=== PATIENT | male | born 1945 | race Caucasian/White ===

== ENCOUNTER 2016-10-29 11:01 | Outpatient (CLI) | payer MEDICARE ==
--- NOTE | 2016-10-29 12:17 | Ultrasound Report ---
SCROTAL DUPLEX: 10/29/2016 CLINICAL INDICATION: Palpable abnormality right side. TECHNIQUE: Real-time sonographic vascular imaging was performed by the assistant professor of religion through the testi cles utilizing both color-flow and Doppler spectral analysis. Multiple medical customer service representative static images were saved for review. FINDINGS: The right testicle measures 5.3 x 3.1 x 2.6 cm, and the left testicle measures 4.3 x 3.2 x 2.0 cm. Both testicles demonstrate normal flow and echotexture. An 8-mm right epididymal head cyst is seen. The left epididymis is unremarkable. There is a large right hydrocele present, and a smal l left hydrocele. No hernia or varicocele is identified. IMPRESSION: LARGE RIGHT AND SMALL LEFT HYDROCELES. NO EVIDENCE OF AN INTRATESTICULAR MASS. JOB #: [id number] EXT JOB #:[id number]
== END 2016-10-29 11:02 | disposition home or self-care (01) ==
LOC: DI 11:01
PROVIDERS: ATTEND Internal Medicine
DX: N43.3 Hydrocele, unspecified (principal)
CPT/HCPCS: 76870

== ENCOUNTER 2018-12-25 14:21 | Emergency (ER) | payer MEDICARE ==
[2018-12-25] MEDS ORDERED: ceFAZolin 2 GM in SODIUM CHLORIDE 0.9% 100ML 100 ML IV STA (14:52)
[2018-12-25] MEDS ORDERED: MORPHINE 2 MG/ML CARPUJECT IVP STA (14:53)
[2018-12-25] MEDS ORDERED: SODIUM CHLORIDE 0.9% 1,000 ML IV ONE (14:53)
--- NOTE | 2018-12-25 15:02 | ED Physician Documentation ---
PD HPI UPPER EXT INJURY - Stated complaint Stated Complaint: CUT OFF FINGER LT HAND - Chief complaint Chief Complaint: Laceration - History obtained from History obtained from: Patient, Family - History of Present Illness Location: Left, Finger (Index) Type of injury: Other (Finger amputation from a miter saw) Where injury occurred: Home Timing - onset: How many hours ago (1) Timing - duration: Hours (1) Timing - details: Abrupt onset Pain level max: 3 Pain level now: 2 Improved by: Rest Worsened by: Moving, Palpating Associated symptoms: No: Weakness, Numbness, Tingling, Swelling Contributing factors: No: Anticoagulated Recently seen: Not recently seen - Additonal information Additional information: Patient is right-handed Review of Systems Constitutional: denies: Fever Respiratory: denies: Cough GI: denies: Nausea, Vomiting Musculoskeletal: denies: Neck pain, Back pain Neurologic: denies: Headache PD PAST MEDICAL HISTORY - Past Medical History Cardiovascular: Hypertension Endocrine/Autoimmune: Type 2 diabetes - Past Surgical History HEENT: Tonsil/Adenoidectomy - Present Medications Home Medications: Ambulatory Orders Medication Instructions Recorded Confirmed Aspirin 12/25/18 Cephalexin [Keflex] 500 mg PO Q6H #28 capsule 12/25/18 Furosemide 12/25/18 Glipizide [Glipizide Xl] 12/25/18 Hydrocodone/Acetaminophen 1 - 2 each PO Q6H PRN #14 tablet 12/25/18 [Hydrocodon-Acetaminophen 5-325] metFORMIN [Glucophage] 12/25/18 - Allergies Allergies/Adverse Reactions: Allergies Allergy/AdvReac Type Severity Reaction Status Date / Time No Known Drug Allergies Allergy Verified 12/25/18 14:27 - Social History Does the pt smoke?: No Smoking Status: Never smoker Does the pt drink ETOH?: Yes Does the pt have substance abuse?: No - Immunizations Immunizations are current?: Yes PD ED PE NORMAL - Vitals Vital signs reviewed: Yes - General General: Alert and oriented X 3, No acute distress - Neck Neck: Supple, no meningeal sign - Derm Derm: Warm and dry - Extremities Extremities: Other (L index finger complete amputation of the finger just proximal to the DIP joint. NVI. ) - Neuro Neuro: Alert and oriented X 3 - Psych Psych: Normal mood, Normal affect Results - Vitals Vitals: Vital Signs - 24 hr 12/25/18 12/25/18 14:27 14:47 Temperature 36.6 C Heart Rate 95 91 Respiratory 18 18 Rate Blood Pressure 155/96 H 146/117 H O2 Saturation 96 97 Oxygen O2 Source Room air - Rads (name of study) L finger xray Radiology: Prelim report reviewed, EMP read contemporaneously, See rad report (Partial amputation of the second finger. No subcutaneous radiopaque foreign bodies identified. ) PD MEDICAL DECISION MAKING - ED course Complexity details: reviewed results, re-evaluated patient, considered differential, d/w patient, d/w family, d/w wireless sales consultant ED course: 73-year-old male with a left index finger amputation. Dr. Ortiz, orthopedics was consulted and rondure the bone back so tissue was overlying the area. Pressure dressing was applied. Patient was bleeding through the pressure dressing, Dr. Ortiz was recontacted and silver nitrate, TXA were attempted. Continued to have a small arterial bleed. Therefore it was elected to sew over the flap. This was done loosely with 2 stitches. No further bleeding. Tube gauze was placed over the area. Xeroform placed under the tube gauze. Patient was given Ancef here. Will place on Keflex and Vicodin for home. Pt will follow-up with orthopedics next week. Patient counseled regarding signs and symptoms for which I believe and urgent re-evaluation would be necessary. Patient with good understanding of and agreement to plan and is comfortable going home at this time This document was made in part using voice recognition software. While efforts are made to proofread this document, sound alike and grammatical errors may occur.. Warnings of infection and instructions on wound care given at bedside. Also counseled on how to minimize scarring. Departure - Departure Disposition: 01 Home, Self Care Clinical Impression: Fingertip amputation Qualifiers: Encounter type: initial encounter Qualified Code(s): S68.119A - Complete traumatic metacarpophalangeal amputation of unspecified finger, initial encounter Condition: Good Instructions: ED Laceration Amputation Finger Tip Open Tx Follow-Up: [facility] [Provider Group] Charles Ortiz MD [Provider Admit Priv/Credential] - 12/28/18 Prescriptions: Cephalexin [Keflex] 500 mg PO Q6H #28 capsule Hydrocodone/Acetaminophen [Hydrocodon-Acetaminophen 5-325] 1 - 2 each PO Q6H PRN #14 tablet PRN Reason: pain Comments: Follow-up with orthopedics on Friday for repeat evaluation. Return if you worsen. Keep the wound clean and dry. Return if you notice redness, swelling or drainage from the wound. Return especially for increasing pain as well. Do not drink alcohol or drive while on narcotic pain medicine. Note that many narcotic pain relievers also contain tylenol/acetaminophen. Please ensure that your total dose of acetaminophen from all sources does not ex ceed 3 grams (3000mg) per day. You may constipated on this medication, take a stool softener such as "Colace" twice a day while you are on it. Also recommend a eylb-gft-cogscvk laxative such as senna or MiraLAX any day that you do not have a bowel movement. If you received narcotic pain medication in the emergency department, do not drive or operate machinery for the next 24 hours.
--- NOTE | 2018-12-25 15:24 | XRAY Report ---
Reason: L index finger amputation Procedure Date: 12/25/2018 Accession Number: [id number] / [id number] Procedure: XR - Finger(s) LT CPT Code: FULL RESULT: EXAM: LEFT SECOND DIGIT RADIOGRAPHY EXAM DATE: 12/25/2018 03:14 PM. CLINICAL HISTORY: Left index finger amputation. COMPARISON: None. TECHNIQUE: 3 views. FINDINGS: Bones: The second finger has been amputated distal to the distal diaphysis of the second middle phalanx. Joints: . No subluxations. Soft Tissues: Irregular soft tissue at the distal aspect of the remnant finger. No subcutaneous radiopaque foreign bodies. IMPRESSION: Partial amputation of the second finger. No subcutaneous radiopaque foreign bodies identified. RADIA
[2018-12-25] MEDS ORDERED: BUPIVACAINE 0.5% PF 10 ML VIAL SUBQ STA (15:38)
[2018-12-25] MEDS ORDERED: TRANEXAMIC ACID 1,000 MG/10 ML VIAL NAS STA (17:37)
[2018-12-25 18:44] VITALS: BP 180/99
--- NOTE | 2018-12-25 20:30 | CONSULTATION NOTE ---
DATE OF SERVICE: 12/25/2018 Physician: Charles Ortiz MD EMERGENCY ROOM CONSULTATION REFERRING PHYSICIAN: Dr. Mehran Byrd of the ED. CHIEF COMPLAINT: "I cut off the tip of my left index finger with a miter saw." HISTORY OF PRESENT ILLNESS: The patient is a 73-year-old male, left-hand dominant, who was apparently cutting some lumber to do repairs on his deck at home when he sustained a traumatic amput ation of the tip of his left dominant index finger. Did not retrieve the tip of his finger. Had no prior injuries to his finger. Has noted some persistent bleeding at his wound site. PHYSICAL EXAMINATION: Shows an oblique transection of the tip of his left index finger. There is ex posed distal phalanx visible in his wound. A small arterial bleeder was noted in the palmar flap as well. X-RAYS: Shows x-ray signs consistent with a traumatic amputation through the distal tip of his dista l phalanx of his index finger. ASSESSMENT: Traumatic amputation of the tip of his left dominant index finger. PLAN: After a digital block using 2.5 mL of 0.5% Marcaine without epinephrine, we obtained a digital block of his finger. We then proceeded to use a rongeur to rongeur off the distal end of the distal phalanx until we were able to obtain soft tissue coverage of his fingertip wound. With pressure ruddy ssing, apparently, the arterial bleeder persisted. Attempt to chemically cauterize the bleeder was u nsuccessful as well. We proceeded to place 2 stitches to close the flap to get better coverage of th e distal phalanx, as well as to diminish the bleeding. Once stable, we then dressed the finger with a nonstick dressing, as well as finger splint to protect the tip of his finger. We will have him cov ered with analgesics and on a 5-7 day course of oral antibiotics. Will follow up [facility] in about a week's time for a wound check. TD: 12/25/2018 18:24
== END 2018-12-25 18:44 | disposition home or self-care (01) ==
LOC: ED 14:21
DX: S68.621A Partial traumatic transphalangeal amputation of left index finger, initial encounter (principal); W31.2XXA Contact with powered woodworking and forming machines, initial encounter; Y93.H3 Activity, building and construction; Y92.009 Unspecified place in unspecified non-institutional (private) residence as the place of occurrence of the external cause; I10 Essential (primary) hypertension; E11.9 Type 2 diabetes mellitus without complications; Z79.84 Long term (current) use of oral hypoglycemic drugs; Z79.82 Long term (current) use of aspirin
CPT/HCPCS: 26951; 73140; 96374; 99284

== ENCOUNTER 2019-01-12 09:27 | Outpatient (CLI) | payer MEDICARE | END 2019-01-12 09:28 | disposition home or self-care (01) | LOC: LAB.S 09:27 | PROVIDERS: ATTEND Internal Medicine | DX: I10 Essential (primary) hypertension (principal) | CPT/HCPCS: 36415; 81599; 82088; 83835; 84244 ==

== ENCOUNTER 2019-01-16 08:00 | Outpatient (CLI) | payer MEDICARE ==
--- NOTE | 2019-01-18 11:51 | Ultrasound Report ---
Reason: MALIGNANT HYPERTENSION Procedure Date: 01/16/2019 Accession Number: [id number] / [id number] Procedure: US - Arterial Visceral Complete CPT Code: FULL RESULT: EXAM: RENAL ARTERY DOPPLER ULTRASOUND EXAM DATE: 01/16/2019 09:20 AM. CLINICAL HISTORY: Malignant hypertension. COMPARISON: None. TECHNIQUE: Real-time sonographic vascular imaging was performed by the bank courier through the renal arterial system with a linear transducer utilizing color-flow, Doppler flow, and spectral analysis. Multiple communications representative static images were saved for review. FINDINGS: Technically challenging examination because of body habitus and overlying bowel gas. The right renal arterial system cannot be evaluated. Right Kidney: 12.6 x 5.8 x 5.8 cm. Echotexture: Within normal limits. Right Segmental Artery: Upper pole: PSV 32.6 cm/sec, RI 0.7. Mid pole: PSV 36.0 cm/sec, RI 0.7. Lower pole: PSV 23.0 cm/sec, RI 0.7. Right Renal Artery: Origin: Not visualized Proximal: Not visualized Mid: Not visualized Distal: PSV 67.9 cm/sec, RA/AO 1.5. Aorta PSV: 45.3 cm/sec. Left Kidney: 13.1 x 7.0 x 6.3 cm. Echotexture: Within normal limits. Left Segmental Artery: Upper pole: PSV 30.1 cm/sec, RI 0.7. Mid pole: PSV 41.6 cm/sec, RI 0.7. Lower pole: PSV 30.3 cm/sec, RI 0.7. Left Renal Artery: Origin: PSV 137.3 cm/sec, RA/AO 3.0. Proximal: PSV 84.6 cm/sec, RA/AO 1.9. Mid: PSV 76.6 cm/sec, RA/AO 1.7. Distal: PSV 62.2 cm/sec, RA/AO 1.4. IMPRESSION: Nondiagnostic examination secondary limitations noted above. Because of clinical history, consider MR angiography or CT angiography, renal function permitting. CRITERIA FOR CLASSIFICATION OF RENAL ARTERY (RA) DISEASE BY DUPLEX SCANNING: RA Diameter Reduction/ RA PSV/ RAR: Normal, < 180 cm/sec, < 3.5 < 60%, >= 180 cm/sec, < 3.5 >= 60%, >= 180 cm/sec, >= 3.5 Total Occlusion: Undetectable; Not applicable RADIA
== END 2019-01-16 08:01 | disposition home or self-care (01) ==
LOC: DI 08:00
PROVIDERS: ATTEND Internal Medicine
DX: I10 Essential (primary) hypertension (principal)
CPT/HCPCS: 93975

== ENCOUNTER 2019-03-23 13:34 | Outpatient (CLI) | payer MEDICARE ==
--- NOTE | 2019-03-23 14:18 | SLEEP CARE CONSULTATION ---
Information from patient questionnaire entered by Nishi Whelan. I have reviewed and concur with the information entered by Nishi Whelan. This document represents the service I personally performed and the decisions made by me, Sylvia Mayer MD, [facility]. History of Present Illness Reason for Visit: New patient Chief Complaint: reports: Excessive daytime sleepiness, Other (hypertension) Duration of Symptoms: months Usual bedtime: [id number] Time it takes to fall asleep: 10-15 minutes Snores at night: Yes Observed to quit breathing while asleep: No Sleeps alone due to snoring: Yes Number of times waking at night: 1-2 Reasons for waking at night: reports: Pain, Bathroom Toss, Turn, or Twitch while sleeping: Yes (sometimes) Recalls having dreams: Yes Usually gets out of bed at: 0600-080 Feels refreshed in the morning: No Morning headache: No Sleepy or fatigued during the day: Yes Ever fallen asleep while driving: Yes Takes day naps: Yes Dreams during day naps: No Prior sleep studies: No Additional HPI information: I had the pleasure of seeing Mr. Grace today regarding the possibility of him having a sleep disorder. As you know, he is a 73 year old gentleman who complains of loud snore and history of hypertension that is difficult to control. The patient tells me that he normally goes to bed around 1:30 2 am, and it takes him approximately 10 - 15 minutes to fall asleep. He has been told that he snores loudly and irregularly at night. He has never been observed to stop breathing in his sleep. However, his has to sleep in a separate room. He can recall waking up on the average of 1 - 2 times during the night. Most of the time he wakes up because of pain. He has never awakened occasionally because of his own snoring, choking, or having to gasp for air. However, he does not sleep on his back. There is not a lot of tossing and turning in his sleep. No somniloquy (sleep talking) or somnambulism (sleep walking). Generally he can recall having dreams. In the morning he usually gets up out of the bed around 6 - 8 a.m. not feeling refreshed nor rested. He usually does not have a morning headache. During the day he complains of feeling sleepy and fatigued. His score on [place] Sleepiness Scale is 13 out of 24. He has fallen asleep while driving and has gone out of the benjamin. He usually takes naps during the day. Upon falling asleep during the day he denies having vivid dreams. He has never had sleep paralysis, experienced cataplexy or symptoms of restless leg syndrome. He reports having impaired concentration during the day. Subjective Initial [place] Sleepiness Scale score: 13 Past Medical History Past Medical History: reports: Hypertension, Diabetes (type 2), Arthritis, GERD, Other (edema,cholesteral) Social History The patient's occupation is retired. Patient is and lives in [place]. Have you smoked in the past 12 months: No Cigarettes per day (20/pack): 20 Years of smokin Quit date: 2008 Smoking Pack Years: 30.0 Alcohol use: Yes Alcohol amount and frequency: 1-2, 2 times/year Caffeine use: Yes Caffeine amount and frequency: 2 cups/morning Family History Family history of sleep disordered breathing: No Allergies and Home Medications Drug allergies reviewed: Yes Home medication list reviewed: Yes Allergy and home medication list: Meds: metformin, amlodipine, losartan, glipizide, furosemide, atorvastatin, vitamins Allergies: NKDA Review of Systems Weight loss over past 5 years: 30 Cardiovascular: reports: high blood pressure, leg or foot swelling Respiratory: denies: shortness of breath, wheeze, sputum production, chronic cough, other Gastrointestinal: reports: heartburn Urinary: reports: frequency, urgency Neurological: denies: headaches, seizure, head trauma, disorientation, speech dysfunction, gait or balance problems, fainting or unconsciousness, other Psychiatric: denies: Attention Deficit Hyperactivity, anxiety, depression, mood disorder, claustrophobia, other Ear/Nose/Throat: reports: dry mouth/throat, tonsillectomy, wisdom teeth removed Endocrine: reports: increased appetite Musculoskeletal: reports: joint pain, neck pain, back pain, joint swelling, muscle pain or cramping Immunologic: denies: sneezing, rash, itching, allergies to food or environment, other Physical Exam Vital signs obtained and entered by: Dr. Mayer Blood Pressure: 169/102 Cuff size: regular Heart Rate: 79 O2 Saturation: 96 Height: 6 ft Weight: 300 lb Body Mass Index: 40.6 BMI Classification: Obesity Class 3 Neck circumference: 18 Nasal exam: positive: erythema Mood/affect: normal HEENT: No craniofacial malformation Nostrils: patent to airflow Turbinates: normal Septum: deviated left Mouth and throat: narrow oropharynx Soft palate: long Hard palate: normal Uvula: normal Uvula visualization: 50% Mallampati Class II Tongue: normal in size Tonsils: absent bilaterally Chin and jaw: normal size and position Neck: normal w/o lymphadenopathy or thyromegaly Heart: regular rate and rhythm Lungs: clear bilaterally Abdomen: soft, non-tender Extremities: 1+ edema Neurologic: intact, no focal deficits Impression and Plan IMPRESSION: 1. Obstructive Sleep Apnea-Hypopnea Syndrome, as suggested by history of loud and irregular snoring, frequent awakenings during the night, unrefreshed sleep, cognitive impairment, and daytime hypersomnolence. Narrow oropharynx and obesity are common predisposing factors for obstructive sleep apnea-hypopnea syndrome. Untreated obstructive sleep apnea can also cause hypertension. Pathophysiology of sleep-disordered breathing was discussed. I recommend proceeding to polysomnography to confirm the diagnosis and to assess severity. If he has significant sleep disordered breathing, a manual CPAP titration study will also be performed to find the optimal treatment pressure. I informed the patient of what the sleep studies involve and after some discussion, he agreed to proceed. Plan: 1. Schedule polysomnography + manual CPAP titration study 2. Avoid long distance driving or when feeling sleepy. 3. Avoid alcohol, sedative and muscle relaxant around bedtime. 4. Attempt to lose weight. 5. Return in 1 to 2 weeks after the study to discuss results and initiate therapy. I spent 100% of this 20 minute visit face to face with the patient with greater than 50% of this was spent time counseling the patient and coordination of care.
[2019-03-23 14:19] VITALS: BP 169/102
== END 2019-03-23 13:35 | disposition home or self-care (01) ==
LOC: SC 13:34
PROVIDERS: ATTEND Internal Medicine Pulmonary Disease
DX: G47.10 Hypersomnia, unspecified (principal); R41.89 Other symptoms and signs involving cognitive functions and awareness; G47.8 Other sleep disorders; R06.83 Snoring; E66.9 Obesity, unspecified; Z68.41 Body mass index [BMI] 40.0-44.9, adult
CPT/HCPCS: 99203; G0463; 99212

== ENCOUNTER 2019-06-29 13:50 | Outpatient (CLI) | payer MEDICARE ==
--- NOTE | 2019-06-29 16:44 | SLEEP CARE CONSULTATION ---
Information from patient questionnaire entered by Hollie Garces. I have reviewed and concur with the information entered by Hollie Garces. This document represents the service I personally performed and the decisions made by me, Sylvia Mayer MD, [facility]. History of Present Illness Initial [place] Sleepiness Scale score: 13 Current [place] Sleepiness Scale score: 9 Additional HPI information: HPI: Mr. Belle returned for follow up of the sleep study he had on 06/17/2019. The polysomnography showed that the patient had reduced sleep efficiency due to two prolonged awakenings after the sleep onset. The sleep architecture was abnormal for sleep fragmentation and lack of REM sleep Respiratory monitoring showed moderate obstructive sleep apnea-hypopnea (AHI = 20.3) associated with frequent arousals, oxyhemoglobin desaturation and mild hypoxia (jose oxygen saturation of 82%). The respiratory events occurred mainly during supine sleep (supine AHI = 37.4; non-supine = 11.72). Snore was moderate to loud in intensity. There was severe periodic leg movement of sleep contributing to the sleep fragmentation. Cardiac rhythm was normal sinus rhythm without significant arrhythmia. No abnormal behavior (parasomnia) observed during the night. The patient was informed of these findings. I explained to him the pathophysiology behind obstructive sleep apnea. We then spent quite a bit of time discussing different treatment options. For mild obstructive sleep apnea, surgery and oral appliance are alternatives to nasal CPAP therapy but in moderate or severe cases, nasal CPAP is the most effective and reliable treatment. Weight loss in an obese individual is strongly recommended. After some discussion, he opted to go with the nasal CPAP therapy. I explained to him how CPAP machine works and what to expect when using the machine. He is encouraged to use CPAP every night especially in the first 2 to 3 nights in order to get used to it. He should call his CPAP supplier or me to discuss any mechanical problem that may occur. If he snores or feels like he is not getting enough air from the machine, he should notify me and I will increase the pressure. Allergies and Home Medications Drug allergies reviewed: Yes Home medication list reviewed: Yes Review of Systems Review of systems same as previous: Yes Physical Exam Height: 6 ft Weight: 300 lb Body Mass Index: 40.6 BMI Classification: Morbidly Obese Impression and Plan IMPRESSION: 1. Obstructive Sleep Apnea-Hypopnea Syndrome, moderate, associated with mild hypoxemia and sleep fragmentation. Most likely, this is the cause of the patients symptoms of unrefreshed sleep, and excessive daytime sleepiness. As mentioned above, the patient will be started on an autoCPAP set at 5 - 15 cmH2O. Depending on his response and compliance he may be brought back for an overnight CPAP titration study. PLAN: 1. Prescription made for an autoCPAP, heated humidifier, and related supplies. 2. Attempt to lose weight and avoid alcohol consumption near bedtime. 3. The patient is again cautioned about driving until his sleepiness completely resolves on the CPAP therapy. I spent 100% of this visit face to face with the patient with greater than 50% of this was spent time counseling the patient and coordination of care.
== END 2019-06-29 13:51 | disposition home or self-care (01) ==
LOC: SC 13:50
PROVIDERS: ATTEND Internal Medicine Pulmonary Disease
DX: G47.33 Obstructive sleep apnea (adult) (pediatric) (principal); E66.01 Morbid (severe) obesity due to excess calories; Z68.41 Body mass index [BMI] 40.0-44.9, adult
CPT/HCPCS: 99212; 99213

== ENCOUNTER 2019-07-28 16:42 | Outpatient (CLI) | payer MEDICARE ==
--- NOTE | 2019-07-28 17:43 | SLEEP CARE CONSULTATION ---
Information from patient questionnaire entered by Nishi Whelan. I have reviewed and concur with the information entered by Nishi Whelan. This document represents the service I personally performed and the decisions made by me, Gwendolyn Beck, RN, MSN, MACHINE SKIVER. History of Present Illness Service Date and Time: 07/28/2019 1600 Previous diagnosis: Moderate, Obstructive Sleep Apnea-Hypopnea Syndrome AHI: 20.3 Reason for follow up: one month (very dry mouth with no help changing humidity) Equipment type: CPAP Equipment obtained from: [facility] [facility] Mask style: Full face Mask brand: Respironics ([employer]) Last cushion change: none since set up - only used for 12-13 days Prior sleep studies: Yes CPAP Compliance Data - Data Reviewed with Patient Average duration of nightly device use: 5h 7m Compliance rate %: 86 (14 day period) Current pressure setting (cmH2O): 5-15 Average residual AHI: 2.7 (mean pressure 8.6cm/ 95th pressure 12.1cmH20) Average large leak: 8.7 liters a minute / 95th is 37.1 liters a minute Subjective Patient concerns: reports: mask discomfort (slightly when he sleeps on his side), condensation in mask/hose (slight), dry mouth, nose, throat (dry mouth and throat). denies: aerophagia, air blowing in eyes, mask leak noise, nasal congestion, epistaxis, other Observed to snore while using device: No Current pressure setting perceived as: comfortable On therapy, patient: reports: sleeping better (a little better) Initial [place] Sleepiness Scale score: 13 Allergies and Home Medications Home medication list reviewed: No Physical Exam Height: 6 ft Impression and Plan 1. Obstructive Sleep Apnea-Hypopnea Syndrome, moderate, with good treatment compliance and good apnea control the first 13 days of use. On CPAP therapy, the patient has slightly better sleep quality. His main concern is his oral dryness despite maximum humidity setting of 8 and reduced heated hose temperature of 67%. The CPAP reservoir seems to be using most of the water. He also has some condensation in his hose from the reduced hose temperature so I advised increasing the hose temperature slightly. I explained that his mask leaks may be contributing to his oral dryness. The patient has checked his mask fit and it shows good. However, his compliance graph shows masks leaks most days with an average of 8.7 liters a minute and 95th range of 37.1 liters per minute. It appears he notes his mask leaks mostly when he sleeps on is side and adjusts his pillow and mask. I explained that a CPAP pillow with cut outs on the side can be bought on line to reduce mask leaks when he sleeps in the lateral recumbent position. I also discussed a mask refitting but he likes this mask. So I advised him to adjust the straps slightly tighter. If continued oral dryness, I may need to have the device checked for malfunction of humidity. In addition, I will have him complete a sleep diary to see why he is only sleeping about 5 hours that includes a nap per patient concern. The current pressure is comfortable and will not be changed at this time. * Continue CPAP pressure at 4-15 cmH2O * Adjust mask * Consider CPAP pillow * sleep diary - 2 weeks * Notify me if snoring with mask or feeling that the pressure is too much or too little * Call this office if any problems using CPAP * Return for follow up in 2-4 weeks , or sooner if concerns arise Visit Type: Telehealth Phone (to minimize cj risk of COVOD -19 exposure, the patient has agreed to a telehealth visit and to bill his insurance.) Patient agrees and consents to this telehealth visit type: Yes Time Spent with Patient (minutes): 12 Provider Statement: I spent 100% of the Telehealth Phone Call with the patient with greater than 50% spent counseling the patient and coordination of care.
== END 2019-07-28 16:43 | disposition home or self-care (01) ==
LOC: SC 16:42
PROVIDERS: ATTEND Nurse Practitioner Family
DX: G47.33 Obstructive sleep apnea (adult) (pediatric) (principal)

== ENCOUNTER 2019-08-18 14:42 | Outpatient (CLI) | payer MEDICARE ==
--- NOTE | 2019-08-18 09:31 | SLEEP CARE CONSULTATION ---
Information from patient questionnaire entered by Nishi Whelan. I have reviewed and concur with the information entered by Nishi Whelan. This document represents the service I personally performed and the decisions made by me, Gwendolyn Beck, RN, MSN, RN PAIN MANAGEMENT. History of Present Illness Service Date and Time: 08/18/2019 1442 Previous diagnosis: Moderate, Obstructive Sleep Apnea-Hypopnea Syndrome AHI: 20.3 Reason for follow up: first compliance Equipment type: CPAP Equipment obtained from: [employer] Mask style: Full face Backup mask available: No CPAP Compliance Data - Data Reviewed with Patient Average duration of nightly device use: 5h 15m Compliance rate %: 97 Current pressure setting (cmH2O): 5-15 Average residual AHI: 2.7 (med 8.5cmH20 / 95th% 12.2%) Average large leak: 4.7 liters per minute Subjective Patient concerns: reports: air blowing in eyes (rare), dry mouth, nose, throat (dry mouth - reduced the humidity to 6 and is better), other (tried the CPAP pillow to reduce mask leaks but did not seem better so stopped using / notes extra leak at connection of hose to mask at top of head- not vent). denies: aerophagia, mask discomfort, mask leak noise, condensation in mask/hose, nasal congestion, epistaxis Observed to snore while using device: No (single) Current pressure setting perceived as: comfortable On therapy, patient: reports: sleeping better, awakening more refreshed (slight increase in restfulness and sleep), being more awake and alert during the day, more rested overall, other. denies: drowsiness while driving Initial [place] Sleepiness Scale score: 13 Physical Exam Height: 6 ft Impression and Plan 1. Obstructive Sleep Apnea-Hypopnea Syndrome, moderate, with good treatment compliance and good apnea control. On CPAP therapy, the patient has slightly better sleep quality and is more rested overall. The patient continues to have oral dryness that could be related to his increased in mask leaks. He states his mask fit is good when tried. He also states that there is a leak at the connection of the hose to the to the mask at top of his head. It was not the vent. In addition, he has not received any mask cushions or filters. Thus he is advised to contact [employer] for more mask cushions to improve mask seal and to obtain more filers. In addition, he is to inform them of the extra leak noted at connection site of hose to mask to see if there is a malfunction and needs to be replaced or adjusted differently. Since his apnea is well controlled at medimum pressure of 8.5cmH20 and 95th percentile of 12.2cmH20 I will adjust his CPAP pressure to [id number]. He is to contact me if there is any discomfort with pressure change. There was not time to review his sleep diary to see why he only sleeps about 5-6 hours. I offered to review at next encounter available in a month but declined. Thus his sleep time will be reviewed at his 3 month CPAP check to see if further sleep diary information needed. Patient's apnea severity and rationale for treatment to reduce apnea, improve sleep quality and reduce cardiovascular and cerebrovascular events was reviewed. I also reviewed the benefit of consistent device use of CPAP for hypertension. * [employer] CPAP pressure to 8-12 cmH2O * Contact [facility] re hose leak, needed supplies * Notify me if snoring with mask or feeling that the pressure is too much or too little * Review sleep diary at follow up if still not sleeping longer hours. * Call this office if any problems using CPAP * Return for follow up in 3 months , or sooner if concerns arise Visit Type: Telehealth Phone Patient Location: Home Location of Provider: Office Patient agrees and consents to this telehealth visit type: Yes Time Spent with Patient (minutes): 10 Provider Statement: I spent 100% of the Telehealth Phone Call with the patient with greater than 50% spent counseling the patient and coordination of care.
== END 2019-08-18 14:43 | disposition home or self-care (01) ==
LOC: SC 14:42
PROVIDERS: ATTEND Nurse Practitioner Family
DX: G47.33 Obstructive sleep apnea (adult) (pediatric) (principal)

== ENCOUNTER 2022-12-12 17:40 | Outpatient (CLI) | payer MEDICARE ==
[2022-12-12 20:31] LABS: BILIRUBIN,URINE NEGATIVE (NEGATIVE); GLUCOSE, URINE (UA) NEGATIVE (NEGATIVE); KETONES,URINE (UA) NEGATIVE (NEGATIVE); LEUKOCYTE ESTERASE, URINE TRACE (NEGATIVE); NITRITE,URINE NEGATIVE (NEGATIVE); OCCULT BLOOD,URINE TRACE-INTA (NEGATIVE); PH,URINE 5.5 PH (5.0-7.5); PROTEIN,URINE 30 mg/dL (NEGATIVE); UROBILINOGEN,URINE 0.2 (NORMAL) E.U./dL (NORMAL)
[2022-12-12 20:32] LABS: CLARITY,URINE CLOUDY (CLEAR)
[2022-12-12 21:07] LABS: BACTERIA,URINE Many /HPF (None Seen); MUCUS,URINE Moderate Strands; RBC,URINE 0-5 /HPF (0-5); SQUAMOUS EPITHELIAL CELL,UR FEW Squamous (<= Few)
--- NOTE | 2022-12-13 13:53 | XRAY Report ---
PROCEDURE: Lumbar Spine 2 View INDICATIONS: LEFT FLANK PAIN TECHNIQUE: 2 views of the lumbar spine were acquired. COMPARISON: None. FINDINGS: Bones: 5 [id number] vertebrae are present. There is trace retrolisthesis of L1 and L2 Occult i njury, likely on L4 and L5 on S1. Multilevel moderate degenerative disc space narrowing is present. M ultilevel foraminal narrowing most severe at L3-4 and L5-S1. Anterior osteophytes are present.. No v ertebral body compression fractures. No suspicious bony lesions. Soft tissues: Overlying bowel gas pattern is normal. No suspicious soft tissue calcifications. IMPRESSION: Multilevel degenerative changes as above. Reviewed by: Serena De Los Santos MD on 12/13/2022 1:51 PM PDT Approved by: Serena De Los Santos MD on 12/13/2022 1:51 PM PDT Station ID: [id number]
--- NOTE | 2022-12-13 13:53 | XRAY Report ---
PROCEDURE: Hip w/Pelvis 2-3V LT INDICATIONS: LEFT HIP PAIN TECHNIQUE: AP pelvis with lateral view(s) of the left hip(s). COMPARISON: None. FINDINGS: Bones: No fractures or dislocations. No suspicious bony lesions. Mild to moderate bilateral degen erative joint space narrowing within the hips bilaterally. No erosions. Soft tissues: No suspicious soft tissue calcifications or masses. IMPRESSION: Bilateral hip arthritis Reviewed by: Serena De Los Santos MD on 12/13/2022 1:52 PM PDT Approved by: Serena De Los Santos MD on 12/13/2022 1:52 PM PDT Station ID: [id number]
== END 2022-12-12 23:59 | disposition home or self-care (01) ==
LOC: DI.S 17:40
PROVIDERS: ATTEND Emergency Medicine
DX: R10.9 Unspecified abdominal pain (principal); M16.0 Bilateral primary osteoarthritis of hip; M48.061 Spinal stenosis, lumbar region without neurogenic claudication; M48.07 Spinal stenosis, lumbosacral region; M51.36 Other intervertebral disc degeneration, lumbar region
CPT/HCPCS: 81001; 87077; 87086; 87181

== ENCOUNTER 2022-12-13 14:32 | Emergency (ER) | payer MEDICARE ==
[2022-12-13 15:21] LABS: BASOPHILS % (AUTO) 0.3 %; EOSINOPHILS % (AUTO) 0.3 %; HCT - HEMATOCRIT 36.8 % (42.0-52.0); HGB - HEMOGLOBIN 11.6 g/dL (14.0-18.0); LYMPHOCYTES # (AUTO) 1.9 10^3/uL (1.5-3.5); LYMPHOCYTES % (AUTO) 16.6 %; MEAN CORPUSCULAR HEMOGLOBIN 26.7 pg (27.0-31.0); MEAN CORPUSCULAR HGB CONC 31.5 g/dL (32.0-36.0); MEAN CORPUSCULAR VOLUME 84.8 fL (80.0-94.0); MEAN PLATELET VOLUME 8.7 fL (7.4-11.4); MONOCYTES # (AUTO) 0.8 10^3/uL (0.0-1.0); MONOCYTES % (AUTO) 7.3 %; NEUTROPHILS # (AUTO) 8.7 10^3/uL (1.5-6.6); PLT - PLATELET COUNT 298 10^3/uL (130-450); RED BLOOD COUNT 4.34 10^6/uL (4.70-6.10); RED CELL DISTRIBUTION WIDTH 14.6 % (12.0-15.0); WHITE BLOOD COUNT 11.6 x10^3/uL (4.8-10.8)
[2022-12-13 15:32] LABS: ALBUMIN 3.7 g/dL (3.2-5.5); BILIRUBIN,TOTAL 0.5 mg/dL (0.2-1.0); CALCIUM 9.3 mg/dL (8.5-10.3); CREATININE 1.1 mg/dL (0.6-1.3); POTASSIUM 3.7 mmol/L (3.5-4.5); TOTAL PROTEIN 7.3 g/dL (6.4-8.9)
--- NOTE | 2022-12-13 15:39 | ED Physician Documentation ---
History of Present Illness - Stated complaint Stated Complaint: GEN WEAKNESS - Chief complaint Chief Complaint: General - History obtained from History obtained from: Patient - Additonal information Additional information: 77-year-old gentleman presents with multiple complaints includin. 25 pound unintended weight loss over 6 weeks 2. 3 days of excessive tiredness and falling asleep in the middle of the day despite sleeping at night. 3. Feeling hot and cold and cannot control his temperature without measured fevers. 4. Improving left low back pain for which he had x-rays of the back and hips done at urgent care yesterday showing significant degenerative changes He has a history of type 2 diabetes and hypertension. Has never had a colonoscopy. He is not getting routine prostate cancer screenings. PD PAST MEDICAL HISTORY - Past Medical History Cardiovascular: Hypertension Endocrine/Autoimmune: Type 2 diabetes - Past Surgical History HEENT: Tonsil/Adenoidectomy - Present Medications Home Medications: Ambulatory Orders Medication Instructions Recorded Confirmed Aspirin 12/25/18 Furosemide 12/25/18 Glipizide [Glipizide Xl] 12/25/18 Hydrocodone/Acetaminophen 1 - 2 each PO Q6H PRN #14 tablet 12/25/18 [Hydrocodon-Acetaminophen 5-325] cephALEXin [Keflex] 500 mg PO Q6H #28 capsule 12/25/18 metFORMIN [Glucophage] 12/25/18 Ciprofloxacin HCl [Cipro] 500 mg PO BID #20 tablet 12/13/22 Cyclobenzaprine [Flexeril] 10 mg PO TID PRN #20 tablet 12/13/22 - Allergies Allergies/Adverse Reactions: Allergies Allergy/AdvReac Type Severity Reaction Status Date / Time No Known Drug Allergies Allergy Verified 12/25/18 14:27 - Social History Does the pt smoke?: No Smoking Status: Never smoker Does the pt drink ETOH?: Yes Does the pt have substance abuse?: No - Immunizations Immunizations are current?: Yes PD ED PE NORMAL - Vitals Vital signs reviewed: Yes - General General: Alert and oriented X 3, No acute distress - HEENT HEENT: PERRL, EOMI - Neck Neck: Supple, no meningeal sign, No bony TTP - Cardiac Cardiac: RRR, Other (3 out of 6 machinelike decrescendo holosystolic murmur heard best at the apex. He states his primary care physician knows about this. Has not had an echo.) - Respiratory Respiratory: No respiratory distress, Clear bilaterally - Abdomen Abdomen: Soft, Non tender - Back Back: No CVA TTP, No spinal TTP - Derm Derm: Normal color, Warm and dry - Extremities Extremities: No edema, No calf tenderness / cord - Neuro Neuro: Alert and oriented X 3, Normal speech Results - Vitals Vitals: Vital Signs - 24 hr 12/13/22 12/13/22 14:37 17:49 Temperature 36.8 C Heart Rate 90 91 Respiratory 20 16 Rate Blood Pressure 125/75 125/76 O2 Saturation 98 99 Oxygen O2 Source Room air - EKG (time done) 1450 EKG releavant findings:: EKG personally interpreted by author of this note. Relevant findings are: Rate: Rate (enter#) (85) Rhythm: NSR [place]: Normal Intervals: Prolonged HI, RBBB Ischemia: Normal ST segments Compare to prior EKG: Old EKG unavailable Computer interpretation: Agree with computer - Labs Labs: Laboratory Tests 12/13/22 12/13/22 12/13/22 15:07 15:07 15:07 WBC 11.6 H RBC 4.34 L Hgb 11.6 L Hct 36.8 L MCV 84.8 MCH 26.7 L MCHC 31.5 L RDW 14.6 Plt Count 298 MPV 8.7 Neut # (Auto) 8.7 H Lymph # (Auto) 1.9 Forest # (Auto) 0.8 Eos # (Auto) 0.0 Baso # (Auto) 0.0 Absolute Nucleated RBC 0.00 Nucleated RBC % 0.0 Sodium 134 L Potassium 3.7 Chloride 98 L Carbon Dioxide 30 Anion Gap 6.0 BUN 19 Creatinine 1.1 Estimated GFR (MDRD) 65 L Glucose 111 H Calcium 9.3 Total Bilirubin 0.5 AST 17 ALT 24 Alkaline Phosphatase 106 Total Protein 7.3 Albumin 3.7 Globulin 3.6 Albumin/Globulin Ratio 1.0 Lipase 18 TSH 1.58 Urine Color Urine Clarity Urine pH Ur Specific [place] Urine Protein Urine Glucose (UA) Urine Ketones Urine Occult Blood Urine Nitrite Urine Bilirubin Urine Urobilinogen Ur Leukocyte Esterase Urine RBC Urine WBC Urine WBC Clumps Ur Squamous Epith Cells Urine Bacteria Ur Microscopic Review Urine Culture Comments Nasal Adenovirus (PCR) Nasal B. parapertussis DNA (PCR) Nasal Coronavir 229E PCR Nasal Coronavir HKU1 PCR Nasal Coronavir NL63 PCR Nasal Coronavir OC43 PCR Nasal Enterovir/Rhinovir PCR Nasal Influenza B PCR Nasal Influenza A PCR Nasal Parainfluen 1 PCR Nasal Parainfluen 2 PCR Nasal Parainfluen 3 PCR Nasal Parainfluen 4 PCR Nasal RSV (PCR) Nasal B.pertussis DNA PCR Nasal C.pneumoniae (PCR) Al Human Metapneumo PCR Nasal M.pneumoniae (PCR) Nasal SARS-CoV-2 (PCR) 12/13/22 12/13/22 15:37 17:11 WBC RBC Hgb Hct MCV MCH MCHC RDW Plt Count MPV Neut # (Auto) Lymph # (Auto) [place] # (Auto) Eos # (Auto) Baso # (Auto) Absolute Nucleated RBC Nucleated RBC % Sodium Potassium Chloride Carbon Dioxide Anion Gap BUN Creatinine Estimated GFR (MDRD) Glucose Calcium Total Bilirubin AST ALT Alkaline Phosphatase Total Protein Albumin Globulin Albumin/Globulin Ratio Lipase TSH Urine Color YELLOW Urine Clarity HAZY Urine pH 5.5 Ur Specific [place] 1.015 Urine Protein 30 H Urine Glucose (UA) NEGATIVE Urine Ketones NEGATIVE Urine Occult Blood SMALL H Urine Nitrite NEGATIVE Urine Bilirubin NEGATIVE Urine Urobilinogen 0.2 (NORMAL) Ur Leukocyte Esterase TRACE H Urine RBC 6-10 H Urine WBC 11-25 H Urine WBC Clumps PRESENT Ur Squamous Epith Cells RARE Squamous Urine Bacteria Many H Ur Microscopic Review INDICATED Urine Culture Comments INDICATED Nasal Adenovirus (PCR) NOT DETECTED Nasal B. parapertussis DNA (PCR) NOT DETECTED Nasal Coronavir 229E PCR NOT DETECTED Nasal Coronavir HKU1 PCR NOT DETECTED Nasal Coronavir NL63 PCR NOT DETECTED Nasal Coronavir OC43 PCR NOT DETECTED Nasal Enterovir/Rhinovir PCR NOT DETECTED Nasal Influenza B PCR NOT DETECTED Nasal Influenza A PCR NOT DETECTED Nasal Parainfluen 1 PCR NOT DETECTED Nasal Parainfluen 2 PCR NOT DETECTED Nasal Parainfluen 3 PCR NOT DETECTED Nasal Parainfluen 4 PCR NOT DETECTED Nasal RSV (PCR) NOT DETECTED Nasal B.pertussis DNA PCR NOT DETECTED Nasal C.pneumoniae (PCR) NOT DETECTED Al Human Metapneumo PCR NOT DETECTED Nasal M.pneumoniae (PCR) NOT DETECTED Nasal SARS-CoV-2 (PCR) NOT DETECTED - Rads (name of study) CT chest showing small hiatal hernia and patulous esophagus Relevant Findings:: Final report received, EMP independent interpretation of test CT A/P- R renal mass, 2.4 cm poss RCC. Relevant Findings:: Final report received, EMP independent interpretation of test PD Medical Decision Making - ED course ED course: CBC showing normocytic anemia. Last CBC on the chart was 10 years ago so [facility] the acuity of this. CMP showing fairly normal indices, very mild depressions in chloride and sodium. Work-up here in the emergency department demonstrated positive UA with leukocytosis, basically normal CMP, negative respiratory panel, and CT chest and abdomen pelvis showing patulous esophagus with hiatal hernia and possible renal cell carcinoma. Results were discussed with patient. He is also been running lower blood pressures. He is on amlodipine, losartan, and he just takes Lasix for the pedal edema associated with the amlodipine so probably okay to stop the amlodipine and therefore the Lasix 2. Close blood pressure checks and discussed need for follow-up for upper endoscopy and further work-up on the renal cell mass. Started on Cipro for the positive UA pending cultures. Departure - Departure Disposition: 01 Home, Self Care Clinical Impression: Hiatal hernia, Renal mass, right UTI (urinary tract infection) Qualifiers: Urinary tract infection type: site unspecified Hematuria presence: without hematuria Qualified Code(s): N39.0 - Urinary tract infection, site not specified Back pain Qualifiers: Back pain location: low back pain Chronicity: acute Back pain laterality: left Sciatica presence: without sciatica Qualified Code(s): M54.50 - Low back pain, unspecified Condition: Good Record reviewed to determine appropriate education?: Yes Instructions: ED UTI Cystitis Male Prescriptions: Ciprofloxacin HCl [Cipro] 500 mg PO BID #20 tablet Cyclobenzaprine [Flexeril] 10 mg PO TID PRN #20 tablet PRN Reason: Spasms Comments: Findings tonight included a mildly elevated white count and mild anemia. Positive urinalysis, negative COVID test, and CTs showing a hiatal hernia with patulous esophagus, and a small mass on your right kidney that could be a localized renal cell carcinoma. Given your lower blood pressures with the weight loss I think you can stop the amlodipine, given that the furosemide was only for the swelling associated with the amlodipine you can stop that. Continue the losartan. I think the main thing tonight would be the UTI, and I am treating that with an antibiotic. You is also requested a muscle relaxer instead of pain medication for your back pain. The pain is on the opposite side of the small finding on the kidney. You should follow-up with your primary care physician, he will need a referral for upper endoscopy, and further work-up on the renal mass. Call your doctor to arrange a follow-up appointment, make the next available appointment. In the interim, return anytime if worse or if new symptoms develop. We will culture your urine, the results should be done in 48-72 hours. If an antibiotic change is necessary we will call you. Return if worse in the meantime, especially if you develop increasing flank pain, fevers, or cannot keep down the medication. Forms: PCP List
[2022-12-13 17:19] LABS: B. PARAPERTUSSIS- RESP PCR PAN NOT DETECTED; B. PERTUSSIS- RESP PCR PANEL NOT DETECTED; C. PNEUMONIAE- RESP PCR PANEL NOT DETECTED; CORONAVIRUS 229E-RESP PCR NOT DETECTED; CORONAVIRUS HKU1-RESP PCR NOT DETECTED; CORONAVIRUS NL63-RESP PCR NOT DETECTED; CORONAVIRUS OC43-RESP PCR NOT DETECTED; HUMAN METAPNEUMOVIRUS NOT DETECTED; INFLUENZA A- RESP PCR PANEL NOT DETECTED; INFLUENZA B - RESP PCR PANEL NOT DETECTED; M. PNEUMONIAE- RESP PCR PANEL NOT DETECTED; PARAINFLUENZA VIRUS 1 NOT DETECTED; PARAINFLUENZA VIRUS 2 NOT DETECTED; PARAINFLUENZA VIRUS 3 NOT DETECTED; PARAINFLUENZA VIRUS 4 NOT DETECTED; RHINOVIRUS/ENTEROVIRUS NOT DETECTED; RSV- RESP PCR PANEL NOT DETECTED; SARS-CoV-2 -RESP PCR PANEL NOT DETECTED
[2022-12-13 17:22] LABS: BILIRUBIN,URINE NEGATIVE (NEGATIVE); GLUCOSE, URINE (UA) NEGATIVE (NEGATIVE); KETONES,URINE (UA) NEGATIVE (NEGATIVE); LEUKOCYTE ESTERASE, URINE TRACE (NEGATIVE); NITRITE,URINE NEGATIVE (NEGATIVE); OCCULT BLOOD,URINE SMALL (NEGATIVE); PH,URINE 5.5 PH (5.0-7.5); PROTEIN,URINE 30 mg/dL (NEGATIVE); UROBILINOGEN,URINE 0.2 (NORMAL) E.U./dL (NORMAL)
[2022-12-13 17:31] LABS: CLARITY,URINE HAZY (CLEAR)
[2022-12-13 17:32] LABS: BACTERIA,URINE Many /HPF (None Seen); SQUAMOUS EPITHELIAL CELL,UR RARE Squamous (<= Few); WBC CLUMPS,URINE PRESENT
[2022-12-13] MEDS ORDERED: iohexoL-300 100 ML VIAL IVP ONE (19:07)
--- NOTE | 2022-12-13 20:04 | CT Report ---
PROCEDURE: CHEST W INDICATIONS: weight loss CONTRAST: 100ml omni 300 TECHNIQUE: After the administration of intravenous contrast, 1 mm axial images were acquired from the pulmonary apices through the posterior costophrenic angles. Axial 5 mm soft tissue kernel reconstructions were performed as well as 8 mm axial MIP and coronal and sagittal 5 mm reformations. For radiation dose reduction, the following was used: automated exposure control, adjustment of mA and/or kV according to patient size. COMPARISON: None. FINDINGS: Image quality: Motion degraded Lungs and pleura:No discrete mass, airspace disease, or pleural effusion. There are granulomas and mi cronodules, for which follow-up imaging in one year is optional for high-risk patients. Mediastinum, heart, and esophagus: Small hiatal hernia. Coronary disease. Annular valve calcification s. No pathologic lymph nodes by size criteria. Chest wall and thyroid: Right thyroid goiter/nodule. Consider correlation with ultrasound. Upper abdomen: Separately dictated Bones: No acute or displaced osseous finding. IMPRESSION: No acute thoracic abnormality. No definite mass identified in the chest. This CT is motion degraded. Small hiatal hernia and mildly patulous esophagus with some fluid, correlate with any symptoms and po ssible endoscopy. Other findings as above, nonacute. Reviewed by: Rodolfo Rodriguez MD on 12/13/2022 8:03 PM PDT Approved by: Rodolfo Rodriguez MD on 12/13/2022 8:03 PM PDT Station ID: [id number]
--- NOTE | 2022-12-13 20:09 | CT Report ---
PROCEDURE: ABDOMEN/PELVIS W INDICATIONS: iv only, weight loss, fatigue back pain CONTRAST: 100ml omni 300 TECHNIQUE: After the administration of IV contrast, 5 mm thick sections acquired from the diaphragms to the symp hysis. 5 mm thick coronal and sagittal reformats were acquired. For radiation dose reduction, the f ollowing was used: automated exposure control, adjustment of mA and/or kV according to patient size. COMPARISON: None FINDINGS: Image quality: Moderate artifact is present. Lower chest: Separately dictated Solid organs: Left lobe liver cyst. Gallbladder is mildly distended. No solid appearing liver mass. N o pathologic pancreatic ductal dilation or biliary ductal dilation. Indeterminate lower pole splenic lesion, possibly a cyst. Bilateral adrenal thickening versus small nodules. Suspected renal cysts. Tillman bcentimeter lesions are too small to characterize. There are parapelvic cysts. Possible right lower p ole nonobstructing calculus. No hydronephrosis. There is a right renal mass measuring 2.4 cm. Vessels and lymph nodes: No abdominal aortic aneurysm. No pathologic lymph nodes by size criteria. Th e main portal vein is patent. Bowel and peritoneum: No evidence of small bowel obstruction. No abscess. No pathologic ascites. Poss ible sigmoid colon lipoma. Please consider correlation with age-appropriate colonoscopy results in th e setting of reported weight loss history. Body wall: Fat-containing umbilical hernia. Pelvis: Bladder is unremarkable. Prostatomegaly, not well evaluated on this study. Bones: Degenerative changes, no acute or suspicious osseous finding. IMPRESSION: Right renal mass measuring 2.4 cm, possibly a renal cell carcinoma. The right renal vein is patent. No definite evidence of disseminated metastases. Other findings as above. Artifact degraded CT. Chest findings separately dictated. Reviewed by: Rodolfo Rodriguez MD on 12/13/2022 8:08 PM PDT Approved by: Rodolfo Rodriguez MD on 12/13/2022 8:08 PM PDT Station ID: [id number]
[2022-12-13] MEDS ORDERED: CIPROFLOXACIN 250 MG TABLET PO STA (20:51)
[2022-12-13] MEDS ORDERED: CYCLOBENZAPRINE 10 MG TABLET PO STA (20:51)
[2022-12-13 21:19] VITALS: BP 121/77; O2SAT 97
== END 2022-12-13 21:11 | disposition home or self-care (01) ==
LOC: ED 14:32
DX: N39.0 Urinary tract infection, site not specified (principal); K44.9 Diaphragmatic hernia without obstruction or gangrene; N28.89 Other specified disorders of kidney and ureter; M54.50 Low back pain, unspecified; I10 Essential (primary) hypertension; E11.9 Type 2 diabetes mellitus without complications; Z20.822 Contact with and (suspected) exposure to COVID-19; Z79.82 Long term (current) use of aspirin; Z79.84 Long term (current) use of oral hypoglycemic drugs; Z79.899 Other long term (current) drug therapy
CPT/HCPCS: 36415; 71260; 74177; 80053; 81001; 83690; 84443; 85025; 87077; 87086; 87181; 87633; 93005; 99284; A9270; Q9967; 81003